=== PATIENT | female | born 1940 | race Caucasian/White ===

== ENCOUNTER 2025-08-17 13:11 | Emergency (ER) | payer MEDICARE ==
[~2025-08-17] VITALS: Ht 167.6 cm; Wt 62.8 kg
[2025-08-17 13:15] VITALS: TEMP 97
--- NOTE | 2025-08-17 14:23 | RADIOLOGY REPORT ---
CHEST RADIOGRAPH Indication: Constipation in elderly Technique: DI ACUTE ABDOMEN Comparison: None FINDINGS: Left chest dual lead cardiac pacing device. Cardiac recording device The cardiac silhouette is borderline enlarged. The lungs demonstrate perihilar airspace opacities. The pulmonary vasculature is prominent. There is no pleural effusion. There is no pneumothorax. Aortic atherosclerotic disease. Moderate to large volume stool within the large bowel with overall paucity of bowel gas. No evidence for free intraperitoneal air. There are radiopaque densities projecting over the mid to lower abdomen measuring 1.8 cm, 1.8 cm. Correlate to exclude foreign body. Zipper projecting over the upper pelvic region. Lumbar levoscoliosis IMPRESSION: As above
--- NOTE | 2025-08-17 14:57 | Physician Documentation ---
History of Present Illness ~ Chief Complaint: Constipation Stated Complaint: CONSTIPATION Time Seen by MD: 13:52 Mode of Arrival: POV, Ambulatory HPI 85-year-old female who presents to the emergency department for evaluation of constipation. Seen 10 days ago at [facility] for evaluation of constipation and had begun Dulcolax, Colace and MiraLax at that time. She immediately had excessive bowel movements and became worried. However in the last 5-7 days has a again become constipated. Reports that these symptoms began after using group home of the same big. She feels that she may be taking too many laxatives. She most recently has been increasing her Colace for 100 q.day to b.i.d. along with the additional took a sad and MiraLax. Medication Reconciliation Allergies: Coded Allergies: Penicillins (Verified Allergy, Intermediate, rash, 08/17/25) Sulfa (Sulfonamide Antibiotics) (Verified Allergy, Intermediate, rash, 08/17/25) Review of Systems All Other Systems at this time: Reviewed and Negative Constitutional: Reports: see HPI Gastrointestinal: Reports: see HPI Integumentary: Reports: bruise(s) Physical Exam Vital Signs: RN Vital Signs have been reviewed: Yes, Temperature: 97.0, Source: Temporal, Heart Rate: 95, Respiratory Rate: 20, BP: 162/79, Pulse Oximetry: 99, Weight: 62.800 Oxygen Flow Rate: 0 General Appearance: alert, WD/WN, mild distress EENT: PERRL/EOMI Neck: normal inspection Respiratory: lungs clear Chest: no accessory muscle use Cardiology Exam: normal peripheral pulses Gastrointestinal: tenderness; No: rebound, guarding, rigidity Rectal: deferred Neurologic: oriented x4, contact lens flashing puncher II-XII nml as tested Psychiatric: normal mood/affect Skin: normal color Progress Results/Orders Results/Orders Orders - VANIA PEARSON PAC Acute Abdomen (08/17/25 14:13) Completed Orders - VANIA PEARSON PAC Acute Abdomen (08/17/25 14:13) Vital Signs 08/17/25 08/17/25 08/17/25 08/17/25 13:15 13:52 15:04 15:12 Temp 97.0 Pulse 95 75 79 Resp 20 20 16 14 B/P (MAP) 162/79 135/78 (97) 145/87 Pulse Ox 99 97 98 O2 Flow Rate 0 Medical Decision Making Additional information obtaine: old records Findings Examination history warrants abdominal imaging to evaluate for perforation, obstruction and/or other unforeseen pathologies. Radiologist reports moderate constipation without obstruction. Shared decision-making with the patient to decrease her Colace from b.i.d. to q.day and for management of current constipation she will take a one time dose of Mag citrate and have unsuccessful at the 2 hours we will go ahead and begin MiraLax. Her fevers or that of excessive bowel movements in trying to get back to her routine. Likely this all stems from recent Ozempic use. She is otherwise well hydrated nontoxic appearing. She has friend with her in his received written aftercare instruc tions. Diff Dx GI Bleed:Consideration: Include: AE fistula, Angiodysplasia, Bleeding diathesis, Blood loss anemia, Carcinoma, Diverticulosis, Diverticulitis, Esophageal varicies, Esophagitis, Gastritis, Gastroenteritis, Inflammatory BD, Kathleen-Santillan syndrome, Meckel's diverticulum, PUD, Other Diff Dx Pain:Considerations: Include: AAA, -Complete, - Incomplete, -Inevitable, -Missed, -Threatened, Abruptio placentae, Angina/[place], Aortic dissection, Appendicitis, Bowel obstruction, Cholangitis, Cholecystitis, Cholelithasis, Constipation, Diverticular disease, Dysmenorrhea, Ectopic , Esophageal rupture, Esophagitis, Gastritis/PUD, Gastroenteritis, GI hemorrhage, Hernia, Hepatitis, Inflammatory BD, Ischemic bowel, Mass, Ovarian cyst/torsion, Pancreatitis, PID, Porphyria, Trauma, intraabdominal, Urinary obstruction, Urinary tract infection, Urolithiasis, Other Diff Dx N/V/D:Considerations: Include: Other (Noncontributory) Diff Dx Rectal:Considerations: Include: Other (Noncontributory) Departure Disposition: HOME / SELF CARE / HOMELESS Impression: Primary Impression: Constipation Qualified Codes: K59.00 - Constipation, unspecified Condition: Stable Discharge Instructions: Constipation, Adult Additional Instructions: Your x-rays consistent with constipation. We have agreed that you will waiting take Colace 100 mg once a day which is a change from your twice a day. That she will take on a daily basis. We have also decided that you would give your Mag citrate a one time try. Please drink half a bottle and wait 2 hours. If no bowel movement then begin your MiraLax regiment. Take 17 g of Miralax twice a day for three days oriented you have successful bowel movement. Referrals: NO PRIMARY CARE PROVIDER (PCP) Education Educated: Patient Educated regarding: diagnosis, treatment, prognosis, need for follow up Signature Scribe Signature: . Attestation: . VANIA PEARSON PAC Aug 17, 2025 14:57
[2025-08-17 15:12] VITALS: BP 145/87; PULSE 79; RESP 14; O2SAT 98
== END 2025-08-17 15:15 | disposition home or self-care (01) ==
LOC: ER 13:12
DX: K59.00 Constipation, unspecified (principal); Z88.0 Allergy status to penicillin; Z88.2 Allergy status to sulfonamides
CPT/HCPCS: 74022; 99283